=== PATIENT | male | born 1945 | race Hispanic/Latino ===

== ENCOUNTER 2024-07-10 09:52 | Emergency (ER) | payer BC, OTHER ==
[2024-07-10] MEDS ORDERED: MORPHINE 2 MG/ML SYR ONE (10:47)
[2024-07-10] MEDS ORDERED: ONDANSETRON 4 MG/2 ML VIAL ONE (10:47)
[2024-07-10 11:17] LABS: AST/SGOT 18 U/L (15-37); Albumin 3.4 g/dL (3.4-5.0); Alkaline Phosphatase 79 U/L (45-117); BUN Blood Urea Nitrogen 21 mg/dL (7-18); Bicarbonate 29 mEq/L (21-32); Bilirubin Total 0.6 mg/dL (0.2-1.0); Globulin 3.4 g/dL (2.3-3.5); Glomerular Filtration Rate 77 ml/min (=/>90); Glucose Level 98 mg/dL (74-106); Lipase 28 U/L (13-75); Protein, Total 6.8 g/dL (6.4-8.2); Sodium Level 138 mEq/L (136-145)
[2024-07-10 11:19] LABS: Absolute Basophils 0.1 K/uL (0-0.5); Absolute Eosinophils 0.2 K/uL (0-0.5); Absolute Lymphocytes (CBC) 2.2 K/uL (0.7-4.9); Absolute Monocytes 0.6 K/uL (0.1-1.3); Basophils % 0.7 % (0-1.3); Hematocrit 40.8 % (39.6-49.0); Hemoglobin 13.3 g/dL (13.6-17.9); Lymphocytes % 24.4 % (15.3-44.8); MCHC 32.6 g/dL (32.0-36.0); MCV 76.8 fL (80-100); MPV 7.8 fL (7.6-11.3); Neutrophils % 65.9 % (41.7-73.7); Nucleated Red Blood Cells % 0.1 % (0-0); Platelets 279 thou/uL (152-406); RBC Red Blood Cell Count 5.32 M/uL (4.33-5.43); Red Cell Distribution Width 15.6 % (12.1-15.2)
[2024-07-10 11:20] LABS: ALT/SGPT < 14 U/L (16-61)
[2024-07-10 11:50] LABS: Specific Gravity 1.009 (1.005-1.030); Urine Bilirubin NEGATIVE (Negative); Urine Blood Negative (Negative); Urine Clarity Clear (Clear); Urine Color Light-Yellow (Yellow); Urine Glucose NEGATIVE (Negative); Urine Ketones NEGATIVE (Negative); Urine Microscopic Reflex YN NO UMIC; Urine Nitrite NEGATIVE (Negative); Urine Protein NEGATIVE (Negative); Urine Urobilinogen Normal (Normal)
--- NOTE | 2024-07-10 12:08 | RAD REPORT ---
EXAMINATION: CT Abdomen Pelvis W Contrast CLINICAL INDICATION: Male, 78 years old. left lower abdomen pain TECHNIQUE: CT abdomen and pelvis was performed, after the administration of IV contrast, as per [facility] [employer] protocol. Axial, sagittal and coronal reconstructions were obtained. One or more of the following dose reduction techniques were used: Automated exposure control, adjustment of the mA and k V according to patient size, and iterative reconstruction. Unless otherwise specified, incidental findings do not require dedicated imaging follow-up. COMPARISON: No prior exam. FINDINGS: LOWER CHEST: The visualized lung bases are clear. LIVER: Normal in size and contour. No focal lesion. BILIARY SYSTEM: No suspicious abnormalities. SPLEEN: Normal size. No focal lesion. PANCREAS: No mass, ductal dilation, or alvarez-pancreatic fluid. ADRENALS: Normal; no mass. KIDNEYS: Normal size and contour. No hydronephrosis. URINARY BLADDER: Unremarkable. GASTROINTESTINAL TRACT: No evidence of free air, significant intra-abdominal free fluid, bowel obstru ction or abscess. APPENDIX: Normal appendix. LYMPH NODES: No lymphadenopathy. MUSCULOSKELETAL: No acute or suspicious osseous abnormality. Sequelae of open reduction internal fixa tion of the right femoral neck. ADDITIONAL FINDINGS: Mild prostatomegaly with calcifications. IMPRESSION: No acute or concerning abnormalities seen in the abdomen or pelvis.
--- NOTE | 2024-07-10 12:55 | ER ---
Nurse's Notes [facility] Name: Roni Rider Age: 78 yrs Sex: Male : 1945 Arrival Date: 07/10/2024 Time: 09:52 Bed 7 Private MD: Diagnosis: Lower abdominal pain, unspecified Presentation: 07/10 10:32 Chief complaint: Patient states: abd pain x 5-6 days. Denies N/V/D. Coronavirus screen: ss Client denies travel out of the [place] in the last 14 days. Ebola Screen: Patient denies exposure to infectious person. Patient denies travel to an Ebola-affected area in the 21 days before illness onset. Initial Sepsis Screen: Does the patient meet any 2 criteria? No. Patient's initial sepsis screen is negative. Does the patient have a suspected source of infection? No. Patient's initial sepsis screen is negative. Risk Assessment: Do you want to hurt yourself or someone else? Patient reports no desire to harm self or others. Onset of symptoms was July 05, 2024. 10:32 Method Of Arrival: Ambulatory ss 10:32 Acuity: FLORES 3 ss Triage Assessment: 13:21 General: Appears in no apparent distress. Behavior is calm, cooperative. ll1 Historical: - Allergies: 10:33 PENICILLINS; ss - PMHx: 10:33 Parkinsons; ss - PSHx: 10:33 L shoulder; ss - Immunization history:: Client reports receiving the 2nd dose of the Covid vaccine. - Infectious Disease History:: Denies. - Social history:: Smoking status: Patient denies any tobacco usage or history of. Screenin:21 [facility] ED Fall Risk Assessment (Adult) History of falling in the last 3 months, ll1 including since admission No falls in past 3 months (0 pts) Confusion or Disorientation No (0 pts) Intoxicated or Sedated No (0 pts) Impaired Gait Yes (1 pt) Mobility Assist Device Used Yes (1 pt) Altered Elimination No (0 pt) Score/Fall Risk Level 0 - 2 = Low Risk Maintained a safe environment, Hourly rounding (assess needs \T\ fall precautionary measures) done. Abuse screen: Denies threats or abuse. Nutritional screening: No deficits noted. Tuberculosis screening: No symptoms or risk factors identified. Assessment: 10:47 General: Appears uncomfortable, Behavior is calm, cooperative, appropriate for age. ll1 Pain: Complains of pain in abdomen Quality of pain is described as aching, crampy. GI: Bowel sounds present X 4 quads. Abd is soft and non tender X 4 quads. Reports lower abdominal pain. 11:34 Reassessment: Patient and/or family updated on plan of care and expected duration. Pain ll1 level reassessed. 13:20 Reassessment: No changes from previously documented assessment. Patient and/or family ll1 updated on plan of care and expected duration. Pain level reassessed. Patient is alert, oriented x 3, equal unlabored respirations, skin warm/dry/pink. Vital Signs: 10:32 BP 126 / 90; Pulse 74; Resp 18; Temp 98(TE); Pulse Ox 98% on R/A; Weight 83.46 kg; ss Height 5 ft. 7 in. ; Pain 10/10; 13:19 BP 140 / 86; Pulse 78; Resp 16; Pulse Ox 96% on R/A; Pain 7/10; ll1 10:32 Body Mass Index 28.82 (83.46 kg, 170.18 cm) ss 10:32 Pain Scale: Adult ss 13:19 Pain Scale: Adult ll1 ED Course: 09:55 Patient arrived in ED. mr 09:56 Gatito Wetzel PA is PHCP. cp 09:56 Yang Santana MD is Attending Physician. cp 10:33 Triage completed. ss 10:33 Arm band placed on left wrist. ss 10:43 Americo Wade, RN is Primary Nurse. bp 10:46 Patient has correct armband on for positive identification. Bed in low position. ll1 Provided Education on: ER procedures and process. Cardiac monitoring not applicable on this patient. 10:47 Inserted saline lock: 22 gauge in right antecubital area, using aseptic technique. ll1 Blood collected. Flushed with 10 mL NS. 11:33 Urinalysis w/ reflexes Sent. ll1 11:44 CT Abd/Pelvis - IV Contrast Only In Process Unspecified. EDMS 12:53 Karlos Horowitz MD is Referral Physician. cp 13:20 No provider procedures requiring assistance completed. IV discontinued, intact, ll1 bleeding controlled, No redness/swelling at site. Pressure dressing applied. Administered Medications: 11:00 Drug: Ondansetron IVP 4 mg IVP once; over 2 minutes Route: IVP; Site: right antecubital;bp 13:20 Follow up: Response: No adverse reaction ll1 11:00 Drug: morphine IVP or IV 2 mg IVP once over 4 mins Route: IVP; Infused Over: 4 mins; bp Site: right antecubital; 13:20 Follow up: Response: No adverse reaction ll1 13:21 Follow up: Response: No adverse reaction; Pain is decreased; RASS: Alert and Calm (0) ll1 13:10 Drug: Ketorolac IVP 10 mg IVP once {Note: pain 9/10 RASS 0.} Route: IVP; Site: right ll1 antecubital; 13:21 Follow up: Response: No adverse reaction; Pain is decreased ll1 Medication: 13:47 VIS not applicable for this client. ll1 Outcome: 12:54 Discharge ordered by . maurizio 13:21 Patient left the ED. ll1 13:21 Discharged to home ambulatory, ll1 13:21 Condition: stable 13:21 Discharge instructions given to patient, family, Instructed on discharge instructions, follow up and referral plans. medication usage, Demonstrated understanding of instructions, follow-up care, medications, Prescriptions given X 2, Signatures: Dispatcher [employer] EDNC Mckenna Vuong, Odell Bain mr Carol Mejias RN RN Gatito Wood PA PA cp Peltier, Brian, RN RN bp Ana Shay RN RN ll1 Corrections: (The following items were deleted from the chart) 10:34 10:33 Home Meds: None; [facility]
--- NOTE | 2024-07-10 12:55 | EDPHYS ---
Physician Documentation [facility] Name: Roni Rider Age: 78 yrs Sex: Male : 1945 Arrival Date: 07/10/2024 Time: 09:52 Bed 7 Private MD: ED Physician Yang Santana HPI: 07/10 10:39 This 78 yrs old Male presents to ER via Ambulatory with complaints of cp Abdominal Pain, Back Pain. 10:39 The patient presents with abdominal pain in the left lower quadrant. Onset: The cp symptoms/episode began/occurred 5 day(s) ago. 10:39 The symptoms radiate to left back. Associated signs and symptoms: Pertinent negatives: cp blood in stools, chest pain, constipation, diarrhea, fever, testicular pain, vomiting. The symptoms are described as constant. 10:39 Severity of pain: in the emergency department the pain is unchanged despite home cp interventions. Historical: - Allergies: 10:33 PENICILLINS; ss - PMHx: 10:33 Parkinsons; ss - PSHx: 10:33 L shoulder; ss - Immunization history:: Client reports receiving the 2nd dose of the Covid vaccine. - Infectious Disease History:: Denies. - Social history:: Smoking status: Patient denies any tobacco usage or history of. ROS: 10:45 Abdomen/GI: Positive for abdominal pain, Negative for vomiting, diarrhea, constipation, cp 10:45 Constitutional: Negative for body aches, chills, fever, poor PO intake, cp 10:45 Eyes: Negative for injury, pain, redness, and discharge, cp 10:45 ENT: Negative for drainage from ear(s), ear pain, sore throat, difficulty swallowing, difficulty handling secretions, 10:45 Cardiovascular: Negative for chest pain, palpitations, 10:45 Respiratory: Negative for cough, shortness of breath, wheezing, 10:45 Back: Positive for radiated pain, 10:45 : Negative for urinary symptoms, testicular pain cp 10:45 Neuro: Negative for altered mental status, dizziness, headache, weakness, 10:45 All other systems are negative, Exam: 10:50 Constitutional: The patient appears in no acute distress, alert, awake, non-toxic, well cp developed, well nourished, uncomfortable, 10:50 Head/Face: Normocephalic, atraumatic. cp 10:50 Eyes: Periorbital structures: appear normal, Conjunctiva: normal, no exudate, no cp injection, Sclera: no appreciated abnormality, Lids and lashes: appear normal, bilaterally, 10:50 ENT: External ear(s): are unremarkable, Nose: is normal, Mouth: Lips: moist, Oral mucosa: pink and intact, moist, Posterior pharynx: Airway: no evidence of obstruction, patent, 10:50 Chest/axilla: Inspection: normal, 10:50 Cardiovascular: Rate: normal, Rhythm: regular, 10:50 Respiratory: the patient does not display signs of respiratory distress, Respirations: normal, no use of accessory muscles, no retractions, labored breathing, is not present, Breath sounds: are clear throughout, no decreased breath sounds, no stridor, no wheezing, 10:50 Abdomen/GI: Inspection: abdomen appears normal, Bowel sounds: active, all quadrants, Palpation: soft, in all quadrants, moderate abdominal tenderness, in the left lower quadrant, rebound tenderness, is not appreciated, involuntary guarding, is not appreciated, 10:50 Back: CVA tenderness, is absent, 10:50 Skin: cellulitis, is not appreciated, no rash present. Vital Signs: 10:32 BP 126 / 90; Pulse 74; Resp 18; Temp 98(TE); Pulse Ox 98% on R/A; Weight 83.46 kg; ss Height 5 ft. 7 in. ; Pain 10/10; 13:19 BP 140 / 86; Pulse 78; Resp 16; Pulse Ox 96% on R/A; Pain 7/10; ll1 10:32 Body Mass Index 28.82 (83.46 kg, 170.18 cm) ss 10:32 Pain Scale: Adult ss 13:19 Pain Scale: Adult ll1 MDM: 10:34 Medical Screening Exam initiated cp 11:00 Differential diagnosis: appendicitis, bowel obstruction, diverticulitis, non-specific cp abd pain, Pyelonephritis, Testicular Torsion, Ureterolithiasis, urinary tract infection. 12:54 Data reviewed: vital signs, nurses notes, lab test result(s), radiologic studies, CT cp scan, and as a result, I will discharge patient. 12:54 I considered the following discharge prescriptions or medication management in the emergency department Medications were administered in the Emergency Department. See MAR. Counseling: I had a detailed discussion with the patient and/or guardian regarding the historical points, exam findings, and any diagnostic results supporting the discharge/admit diagnosis, lab results, radiology results, the need for outpatient follow up, a [employer]. Response to treatment: the patient's symptoms have markedly improved after treatment, and as a result, I will discharge patient. Special discussion: Based on the patient's Hx, exam, and Dx evaluation, there is no indication for emergent surgery or inpatient Tx. It is understood by the patient/guardian that if the Sx's persist or worsen they need to return immediately for re-evaluation. 07/10 10:40 Order name: CBC with Diff; Complete Time: 11:32 cp 07/10 11:32 Interpretation: Normal except: HGB 13.3; MCV 76.8; MCH 25.0; RDW 15.6. cp 07/10 10:40 Order name: CMP; Complete Time: 11:32 cp 07/10 12:38 Interpretation: Normal except: CL 108; BUN 21; GFR 77; ALT < 14. 07/10 10:40 Order name: Lipase; Complete Time: 11:32 cp 07/10 10:40 Order name: Urinalysis w/ reflexes; Complete Time: 12:14 cp 07/10 12:15 Interpretation: Reviewed. 07/10 10:40 Order name: CT Abd/Pelvis - IV Contrast Only; Complete Time: 12:14 cp 07/10 10:40 Order name: IV Saline Lock; Complete Time: 10:41 cp 07/10 10:40 Order name: Labs collected and sent; Complete Time: 10:41 cp Administered Medications: 11:00 Drug: Ondansetron IVP 4 mg IVP once; over 2 minutes Route: IVP; Site: right antecubital;bp 13:20 Follow up: Response: No adverse reaction ll1 11:00 Drug: morphine IVP or IV 2 mg IVP once over 4 mins Route: IVP; Infused Over: 4 mins; bp Site: right antecubital; 13:20 Follow up: Response: No adverse reaction ll1 13:21 Follow up: Response: No adverse reaction; Pain is decreased; RASS: Alert and Calm (0) ll1 13:10 Drug: Ketorolac IVP 10 mg IVP once {Note: pain 9/10 RASS 0.} Route: IVP; Site: right ll1 antecubital; 13:21 Follow up: Response: No adverse reaction; Pain is decreased ll1 Disposition: 19:23 Co-signature as Attending Physician, Yang Santana MD I reviewed the patient's care rn provided by the Advanced Practice Provider and agree with the diagnosis and treatment plan. Disposition Summary: 07/10/24 12:54 Discharge Ordered Notes: Location: Home cp Problem: new cp Symptoms: have improved cp Condition: Stable cp Diagnosis - Lower abdominal pain, unspecified cp Followup: cp - With: Karlos Horowitz MD - When: 5 - 6 days - Reason: Recheck today's complaints Discharge Instructions: - Discharge Summary Sheet cp - Abdominal Pain, Adult cp Forms: - Medication Reconciliation Form cp - Antibiotic Education cp - Prescription Opioid Use cp - Patient Portal Instructions cp - Leadership Thank You Letter cp Prescriptions: - Reglan 10 mg Oral tablet - take 1 tablet ORAL route every 6 hours take 30 minutes before meals and at cp bedtime; 30 tablet; Refills: 0, Product Selection Permitted - dicyclomine 20 mg Oral tablet - take 1 tablet ORAL route 4 times per day; 30 tablet; Refills: 0, Product cp Selection Permitted Signatures: Dispatcher [employer] EDYang Harp MD MD rn Blanchard, Shelby, RN RN ss Gatito Wetzel PA PA cp Americo Wade, ELI RN Ana Jaquez RN RN ll1 Corrections: (The following items were deleted from the chart) 10:34 10:33 Home Meds: None; ss ss 10:40 10:40 CBC+H.LAB.BRZ ordered. EDMS EDMS 10:40 10:40 COMPREHENSIVE METABOLIC PANEL+C.LAB.BRZ ordered. EDMS EDMS 10:40 10:40 LIPASE+C.LAB.BRZ ordered. EDMS EDMS 10:40 10:40 Urinalysis+U.LAB.BRZ ordered. EDMS EDMS
[2024-07-10] MEDS ORDERED: KETOROLAC 30 MG/ML INJ ONE (13:08)
[2024-07-10 17:03] VITALS: TEMP 98
[2024-07-10 17:09] VITALS: BP 140/86; O2SAT 96
== END 2024-07-10 13:21 | disposition home or self-care (01) ==
LOC: ER 09:52
DX: R10.32 Left lower quadrant pain (principal); G20.A1 Parkinson's disease without dyskinesia, without mention of fluctuations
CPT/HCPCS: 36415; 74177; 80053; 81003; 83690; 85025; 96374; 96375; 99284; J2270; J2405; Q9967